=== PATIENT | female | born 1995 | race Caucasian/White ===

== ENCOUNTER 2017-12-03 23:08 | Emergency (ER) | payer OTHER ==
[~2017-12-03] VITALS: Ht 182.9 cm; Wt 83.0 kg
[2017-12-03 23:37] VITALS: BP 157/86; PULSE 104; RESP 16; TEMP 98.6; O2SAT 98
[2017-12-04 01:13] VITALS: BP 137/84; PULSE 96; RESP 16; O2SAT 99
[2017-12-04 01:24] LABS: AUTOMATED NEUTROPHIL # 11.5 TH/MM3 (1.8-7.7); BASOPHIL % 0.2 % (0.0-2.0); EOSINOPHIL % 0.3 % (0.0-4.0); HEMATOCRIT 43.6 % (35.0-46.0); HEMOGLOBIN 15.2 GM/DL (11.6-15.3); LYMPH % 10.3 % (9.0-44.0); LYMPHOCYTE # 1.4 TH/MM3 (1.0-4.8); MEAN CELL VOLUME 82.1 FL (80.0-100.0); MEAN CORPUSCULAR HEMOGLOBIN 28.7 PG (27.0-34.0); MEAN CORPUSCULAR HGB CONC 34.9 % (32.0-36.0); MEAN PLATELET VOLUME 7.3 FL (7.0-11.0); MONO % 5.3 % (0.0-8.0); MONOCYTE # 0.7 TH/MM3 (0-0.9); NEUT % 83.9 % (16.0-70.0); PLATELET COUNT 239 TH/MM3 (150-450); RED BLOOD COUNT 5.31 MIL/MM3 (4.00-5.30); WHITE BLOOD COUNT 13.8 TH/MM3 (4.0-11.0)
[2017-12-04 01:29] LABS: BILIRUBIN, URINE NEG (NEG); BLOOD, URINE NEG (NEG); GLUCOSE,URINE NEG (NEG); HYALINE CAST, URINE 1 /lpf (RARE); KETONE, URINE TRACE mg/dL (NEG); MUCUS URINE FEW /lpf (OCC); NITRITE,URINE NEG (NEG); SQUAMOUS EPITHELIAL CELL URINE 12 /hpf (0-5); URINE COLOR YELLOW (YELLW/STRAW); URINE LEUKOCYTE ESTERASE NEG (NEG)
[2017-12-04 01:41] LABS: ALBUMIN 3.9 GM/DL (3.4-5.0); ALT (GPT) 147 U/L (10-53); AST (GOT) 49 U/L (15-37); BICARBONATE 30.7 MEQ/L (21.0-32.0); BLOOD UREA NITROGEN 8 MG/DL (7-18); CALCIUM 9.2 MG/DL (8.5-10.1); CHLORIDE 100 MEQ/L (98-107); CREATININE 0.77 MG/DL (0.50-1.00); GLOMERULAR FILTRATION RATE 92 ML/MIN (>89); GLUCOSE,RANDOM 119 MG/DL (74-106); SODIUM (NA) 137 MEQ/L (136-145)
[2017-12-04 01:43] LABS: ALKALINE PHOSPHATASE 92 U/L (45-117); TOTAL BILIRUBIN ADULT 1.2 MG/DL (0.2-1.0); TOTAL PROTEIN 8.5 GM/DL (6.4-8.2)
[2017-12-04] MEDS ORDERED: SODIUM CHLOR 0.9% 1000 ML INJ 1,000 ML IV SCH (01:45)
--- NOTE | 2017-12-04 01:47 | PD ---
HPI Chief Complaint: GI Complaint Time Seen by Provider: 01:05 Travel History International Travel<30 days: No Contact w/Intl Traveler<30days: No Traveled to known affect area: No History of Present Illness HPI Patient comes in complaining of nausea without much vomiting or diarrhea. Ever since she got out of rehab and went and crushed a Dilaudid pill and shot it IV she has been having the symptoms. Last time she used was yesterday morning. Patient denies any alleviating or aggravating factors. Patient denies any associated factors such as fever, abdominal pain, chest pain, headache, or any diarrhea. [facility], [facility] Past Medical History Medical History: Denies Significant Hx ?: Not Past Surgical History Surgical History: No Previous Surgery Social History Alcohol Use: Yes Tobacco Use: No Substance Use: Yes (IV DILAUDID THIS AM) Allergies-Medications (Allergen,Severity, Reaction): Coded Allergies: No Known Allergies (Unverified , 12/04/17) Review of Systems General / Constitutional: No: Fever Eyes: No: Visual changes HENT: No: Headaches Cardiovascular: No: Chest Pain or Discomfort Respiratory: No: Shortness of Breath Gastrointestinal: Positive: Nausea, Vomiting Genitourinary: No: Dysuria Musculoskeletal: No: Pain Skin: No Rash Neurologic: No: Weakness Psychiatric: No: Depression Endocrine: No: Polydipsia Hematologic/Lymphatic: No: Easy Bruising Physical Exam Narrative GENERAL: SKIN: Warm and dry. HEAD: Atraumatic. Normocephalic. EYES: Pupils equal and round. No scleral icterus. No injection or drainage. ENT: No nasal bleeding or discharge. Mucous membranes pink and moist. NECK: Trachea midline. No JVD. CARDIOVASCULAR: Regular rate and rhythm. RESPIRATORY: No accessory muscle use. Clear to auscultation. Breath sounds equal bilaterally. GASTROINTESTINAL: Abdomen soft, non-tender, nondistended. MUSCULOSKELETAL: Extremities without clubbing, cyanosis, or edema. No obvious deformities. NEUROLOGICAL: Awake and alert. No obvious cranial nerve deficits. Motor grossly within normal limits. Five out of 5 muscle strength in the arms and legs. Normal speech. PSYCHIATRIC: Appropriate mood and affect; insight and judgment normal. Data Data Last Documented VS Vital Signs Date Time Temp Pulse Resp B/P (MAP) Pulse Ox O2 Delivery O2 Flow Rate FiO2 12/04/17 01:13 96 16 137/84 (101) 99 Room Air 12/03/17 23:37 98.6 Orders Orders Complete Blood Count With Diff (12/04/17 01:14) Comprehensive Metabolic Panel (12/04/17 01:14) Urinalysis - C+S If Indicated (12/04/17 01:14) Ed Urine Pregnancytest Poc (12/04/17 01:14) Iv Access Insert/Monitor (12/04/17 01:14) Oxygen Administration (12/04/17 01:14) Oximetry (12/04/17 01:14) Lipase (12/04/17 01:14) Sodium Chlor 0.9% 1000 Ml Inj (Ns 1000 M (12/04/17 01:45) Ondansetron Inj (Zofran Inj) (12/04/17 02:00) Labs Laboratory Tests Test 12/04/17 01:15 White Blood Count 13.8 TH/MM3 Red Blood Count 5.31 MIL/MM3 Hemoglobin 15.2 GM/DL Hematocrit 43.6 % Mean Corpuscular Volume 82.1 FL Mean Corpuscular Hemoglobin 28.7 PG Mean Corpuscular Hemoglobin Concent 34.9 % Red Cell Distribution Width 14.0 % Platelet Count 239 TH/MM3 Mean Platelet Volume 7.3 FL Neutrophils (%) (Auto) 83.9 % Lymphocytes (%) (Auto) 10.3 % Monocytes (%) (Auto) 5.3 % Eosinophils (%) (Auto) 0.3 % Basophils (%) (Auto) 0.2 % Neutrophils # (Auto) 11.5 TH/MM3 Lymphocytes # (Auto) 1.4 TH/MM3 Monocytes # (Auto) 0.7 TH/MM3 Eosinophils # (Auto) 0.0 TH/MM3 Basophils # (Auto) 0.0 TH/MM3 CBC Comment DIFF FINAL Differential Comment Urine Color YELLOW Urine Turbidity HAZY Urine pH 8.0 Urine Specific [place] 1.027 Urine Protein 30 mg/dL Urine Glucose (UA) NEG mg/dL Urine Ketones TRACE mg/dL Urine Occult Blood NEG Urine Nitrite NEG Urine Bilirubin NEG Urine Urobilinogen LESS THAN 2.0 MG/DL Urine Leukocyte Esterase NEG Urine RBC 1 /hpf Urine WBC 3 /hpf Urine Squamous Epithelial Cells 12 /hpf Urine Hyaline Casts 1 /lpf Urine Mucus FEW /lpf Microscopic Urinalysis Comment CULT NOT INDICATED Blood Urea Nitrogen 8 MG/DL Creatinine 0.77 MG/DL Random Glucose 119 MG/DL Total Protein 8.5 GM/DL Albumin 3.9 GM/DL Calcium Level 9.2 MG/DL Alkaline Phosphatase 92 U/L Aspartate Amino Transf (AST/SGOT) 49 U/L Alanine Aminotransferase (ALT/SGPT) 147 U/L Total Bilirubin 1.2 MG/DL Sodium Level 137 MEQ/L Potassium Level 4.0 MEQ/L Chloride Level 100 MEQ/L Carbon Dioxide Level 30.7 MEQ/L Anion Gap 6 MEQ/L Estimat Glomerular Filtration Rate 92 ML/MIN Lipase 212 U/L [facility] Medical Decision Making Medical Screen Exam Complete: Yes Emergency Medical Condition: Yes Medical Record Reviewed: Yes Differential Diagnosis Opiate withdrawal versus pancreatitis versus gastroenteritis versus gastritis versus esophagitis Narrative Course CBC shows reactive leukocytosis of 13.8, 83.9 neutrophilia, no anemia, normal platelet count Urinalysis is not consistent with a UTI Chemistry electrolytes are all within normal limits, normal kidney functions and pancreatic functions. Mild elevation of the AST at 49 ALT at 147 and minor elevation of bilirubin to 1.2 alk phos is normal at 92. These changes are not significant for any major evidence of hepatitis or anything along those lines however due to the risky behavior of this patient that is a possibility that the patient is to follow-up with her primary care physician. Patient will need to undergo rehab once again. Diagnosis Primary Impression: Medical clearance Patient Instructions: General Instructions Scripts Ondansetron Odt (Zofran Odt) 4 Mg Tab 4 MG SL Q8HR Y for Nausea/Vomiting, #10 TAB 0 Refills Prov: Norman Salazar MD 12/04/17 Disposition: 01 DISCHARGE HOME Condition: Stable Norman Salazar MD Dec 04, 2017 01:47
[2017-12-04] MEDS ORDERED: ONDANSETRON HCL 4 MG/2 ML VIAL IVP ONE (02:00)
[2017-12-04] MEDS ORDERED: ZOFR4TAB3 SL (02:32)
== END 2017-12-04 03:42 | disposition home or self-care (01) ==
LOC: NEPE 23:08
DX: R11.2 Nausea with vomiting, unspecified (principal); F11.10 Opioid abuse, uncomplicated
CPT/HCPCS: 80053; 81001; 83690; 84703; 85025; 96361; 96374; 99284; J2405; J7030

== ENCOUNTER 2018-02-14 13:25 | Emergency (ER) | payer SELFPAY ==
[~2018-02-14] VITALS: Ht 180.3 cm; Wt 105.0 kg
[~2018-02-14 13:25] MED LIST: ZOFR4TAB3 SL
[2018-02-14 14:48] VITALS: BP 137/64; PULSE 81; RESP 17; TEMP 98.3; O2SAT 99
[2018-02-14] MEDS ORDERED: MUPI2OIN TOPICAL (17:47)
[2018-02-14] MEDS ORDERED: BACT800T5 PO (17:47)
--- NOTE | 2018-02-14 17:53 | PD ---
HPI Chief Complaint: Skin Problem Time Seen by Provider: 17:25 Travel History International Travel<30 days: No Contact w/Intl Traveler<30days: No Traveled to known affect area: No History of Present Illness HPI 22-year-old female presents to the emergency room for evaluation of painful rash throughout her body. Patient states small lesions keep appearing every day. States they are in various places. They are only very mildly itchy. Patient does have history of IV drug use but just was discharged from inpatient detox and is in a sober house currently. States the sober house is concerned that she may have scabies so they sent her to an urgent care clinic. The urgent care prescribed her amoxicillin and permethrin. She is the permethrin and has been taking amoxicillin but states it does not seem to be working. She is here for a second opinion. [facility] Past Medical History Medical History: Denies Significant Hx Tetanus Vaccination: Unknown Influenza Vaccination: No ?: Not Past Surgical History Surgical History: No Previous Surgery Social History Alcohol Use: No Tobacco Use: No Substance Use: No Allergies-Medications (Allergen,Severity, Reaction): Coded Allergies: No Known Allergies (Unverified , 02/14/18) Reported Meds & Prescriptions Reported Meds & Active Scripts Active Mupirocin Topical (Mupirocin) 2 % Oint 1 Applic TOPICAL BID Bactrim DS (Sulfamethoxazole-Trimethoprim) 800-160 Mg Tab 1 Tab PO BID Review of Systems Except as stated in HPI: all other systems reviewed are Neg Physical Exam Narrative GENERAL: Well-nourished, well-developed female no acute distress. Afebrile. Ambulatory. SKIN: Focused skin assessment warm/dry. Multiple 1-2 mm erythematous pustules throughout the body. There is no impetiginization. No abscess or induration. No drainage. No lymphangitis. HEAD: Normocephalic. EYES: No scleral icterus. No injection or drainage. NECK: Supple, trachea midline. No JVD or lymphadenopathy. CARDIOVASCULAR: Regular rate and rhythm without murmurs, gallops, or rubs. RESPIRATORY: Breath sounds equal bilaterally. No accessory muscle use. MUSCULOSKELETAL: No cyanosis, or edema. Data Data Last Documented VS Vital Signs Date Time Temp Pulse Resp B/P (MAP) Pulse Ox O2 Delivery O2 Flow Rate FiO2 02/14/18 14:48 98.3 81 17 137/64 (88) 99 [facility] Medical Decision Making Medical Screen Exam Complete: Yes Emergency Medical Condition: Yes Medical Record Reviewed: Yes Differential Diagnosis Folliculitis, abscess, cellulitis, scabies Narrative Course 22-year-old female presents to the emergency room for evaluation of slightly painful red pustules throughout her body that have been ongoing for the past 5 days. States they are increasing in frequency. They are not significantly itchy. States they are more painful and itchy. She went to an urgent care clinic and was prescribed permethrin. She applied the cream without relief in symptoms. Physical exam reveals multiple pustules throughout the body, consistent with folliculitis. Patient was told this is likely staph infection given her history of IV drug use, probably MRSA. She will be treated with Bactrim and mupirocin. Told to follow-up with primary care physician or return to the emergency room for worsening symptoms. She understands and agrees to plan. Diagnosis Primary Impression: Folliculitis Referrals: Primary Care Physician Additional Instructions: Stop amoxicillin. Take Bactrim as directed, until gone. Apply ointment as directed, until gone. Follow up with a primary care physician. Return to emergency room for worsening symptoms, as discussed. Med/Other Pt SpecificInfo: Prescription(s) given Scripts Mupirocin Topical (Mupirocin Topical) 2 % Oint 1 APPLIC TOPICAL BID for Mgmt Bacterial Infection, #22 GM 0 Refills Prov: Jerson Hui MD 02/14/18 Sulfamethoxazole-Trimethoprim (Bactrim DS) 800-160 Mg Tab 1 TAB PO BID for Infection, #14 TAB 0 Refills Prov: Jerson Hui MD 02/14/18 Disposition: 01 DISCHARGE HOME Condition: Stable Eunice Warren February 14, 2018 17:53
== END 2018-02-14 18:14 | disposition home or self-care (01) ==
LOC: NEPD 13:25
DX: L73.9 Follicular disorder, unspecified (principal)
CPT/HCPCS: 99283